=== PATIENT | female | born 1985 | race Caucasian/White ===

== ENCOUNTER 2017-03-19 02:34 | Emergency (ER) | payer MEDICAID ==
--- NOTE | 2017-03-19 02:48 | EDM.PDOC ---
ED HPI GENERAL MEDICAL PROBLEM - General Stated Complaint: MEDICAL CLEARANCE Time Seen by Provider: 03/19/17 02:44 - History of Present Illness INITIAL COMMENTS - FREE TEXT/NARRATIVE: HISTORY AND PHYSICAL: History of present illness: Patient 32-year-old female presents because of one portion of medical clearance patient denies any concern Review of systems: As per history of present illness and below otherwise all systems reviewed and negative. Past medical history: As per history of present illness and as reviewed below otherwise noncontributory. Surgical history: As per history of present illness and as reviewed below otherwise noncontributory. Social history: No reported history of drug or alcohol abuse. Family history: As per history of present illness and as reviewed below otherwise noncontributory. Physical exam: HEENT: Atraumatic, normocephalic, pupils reactive, negative for conjunctival pallor or scleral icterus, mucous membranes moist, throat clear, neck supple, nontender, trachea midline. Lungs: Clear to auscultation, breath sounds equal bilaterally, chest nontender. Heart: S1S2, regular, negative for clicks, rubs, or JVD. Abdomen: Soft, nondistended, nontender. Negative for masses or hepatosplenomegaly. Negative for costovertebral tenderness. Pelvis: Stable nontender. Genitourinary: Deferred. Rectal: Deferred. Extremities: Atraumatic, negative for cords or calf pain. Neurovascular unremarkable. Neuro: Awake, alert, oriented. Cranial nerves II through XII unremarkable. Cerebellum unremarkable. Motor and sensory unremarkable throughout. Exam nonfocal. Diagnostics: None Therapeutics: None Impression: #1 medically clear for incarceration Definitive disposition and diagnosis as appropriate pending reevaluation and review of above. - Related Data Allergies Allergy/AdvReac Type Severity Reaction Status Date / Time latex Allergy Hives Verified 07/03/16 22:05 nickel Allergy Rash Verified 07/03/16 22:05 Penicillins Allergy Cannot Verified 07/03/16 22:05 Remember Home Meds: Home Meds Methylphenidate HCl [Methylphenidate ER] 2 tab PO BID 05/06/16 [History] Temazepam 1 cap PO BEDTIME PRN 05/06/16 [History] Rivaroxaban [Xarelto] 15 mg PO BID #40 tablet 06/03/16 [Rx] oxyCODONE 10 mg PO Q6H PRN #14 tablet 06/03/16 [Rx] Omeprazole 40 mg PO DAILY 06/27/16 [History] Past Medical History HEENT History: Reports: Impaired Vision Other HEENT History: wears glasses/ contacts Cardiovascular History: Reports: Blood Clots/VTE/DVT, Hypertension Other Cardiovascular History: currently has a blood clot in right arm, disgnosed 05/31/16- off xarelto for one week Respiratory History: Reports: None Gastrointestinal History: Reports: GERD, Hepatitis Other Gastrointestinal History: Hepatitis C, recent hx of hematemesis Genitourinary History: Reports: Renal Calculus 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: Ectopic , Endometriosis, Musculoskeletal History: Reports: Back Pain, Chronic, Fracture, Neck Pain, Chronic Other Musculoskeletal History: hx of fx right clavicle, states has chronic joint pain Neurological History: Reports: None Other Neuro History: states has had a headache for 3 weeks Psychiatric History: Reports: ADD, Anxiety, Depression, PTSD Endocrine/Metabolic History: Reports: Obesity/BMI 30+ Hematologic History: Reports: Anticoagulation Therapy Other Hematologic History: currently has a blood clot in her right arm Immunologic History: Reports: None Oncologic (Cancer) History: Reports: None Dermatologic History: Reports: None - Infectious Disease History Infectious Disease History: Reports: None - Past Surgical History Female Surgical History: Reports: D&C, Lithotripsy/ESWL, Other (See Below) Social & Family History - Family History OBGYN: Reports: Musculoskeletal: Reports: Back pain, Chronic Endocrine/Metabolic: Reports: Diabetes, type II, Hypothyroidism Oncologic: Reports: Skin - Tobacco Use Smoking Status *Q: Current Every Day Smoker Years of Tobacco use: 4 Packs/Tins Daily: 0.5 Second Hand Smoke Exposure: No - Caffeine Use Caffeine Use: Reports: None - Alcohol Use Days Per Week of Alcohol Use: 0 - Recreational Drug Use Recreational Drug Use: No Drug Use in Last 12 Months: No ED ROS GENERAL - Review of Systems Review Of Systems: ROS reveals no pertinent complaints other than HPI. ED EXAM, GENERAL - Physical Exam Exam: See Below (See dictation) Departure - Departure Time of Disposition: 02:47 Disposition: Home, Self-Care 01 Condition: Good Clinical Impression: Medical clearance for incarceration, Encounter for medical screening examination - Discharge Information Additional Instructions: The following information is given to patients seen in the emergency department who are being discharged to home. This information is to outline your options for follow-up care. We provide all patients seen in our emergency department with a follow-up referral. The need for follow-up, as well as the timing and circumstances, are variable depending upon the specifics of your emergency department visit. If you don't have a primary care physician on staff, we will provide you with a referral. We always advise you to contact your personal physician following an emergency department visit to inform them of the circumstance of the visit and for follow-up with them and/or the need for any referrals to a consulting specialist. The emergency department will also refer you to a specialist when appropriate. This referral assures that you have the opportunity for followup care with a specialist. All of these measure are taken in an effort to provide you with optimal care, which includes your followup. Under all circumstances we always encourage you to contact your private physician who remains a resource for coordinating your care. When calling for followup care, please make the office aware that this follow-up is from your recent emergency room visit. If for any reason you are refused follow-up, please contact the [facility] emergency department at and asked to speak to the emergency department charge nurse. Jeffrey primary medical doctor 1-2 days return as needed as discussed
[2017-03-19] MEDS ORDERED: Proparacaine 0.5% Ophth Soln 15 ML Bottle ONE (02:57)
[2017-03-19] MEDS ORDERED: Proparacaine 0.5% Ophth Soln 15 ML Bottle EYELF SCH (03:00)
[2017-03-19] MEDS ORDERED: Erythromycin Base 0.5% Ophth Oint 1 GM Tube EYELF ONE (03:01)
[2017-03-19 07:56] VITALS: BP 133/95
== END 2017-03-19 03:30 ==
LOC: MW.ED 02:34
DX: H18.823 Corneal disorder due to contact lens, bilateral (principal); I10 Essential (primary) hypertension; K21.9 Gastro-esophageal reflux disease without esophagitis; E66.9 Obesity, unspecified; F41.9 Anxiety disorder, unspecified; F32.9 Major depressive disorder, single episode, unspecified; F17.210 Nicotine dependence, cigarettes, uncomplicated; Z91.040 Latex allergy status; Z88.0 Allergy status to penicillin; Z87.442 Personal history of urinary calculi
CPT/HCPCS: 99282; A9270

== ENCOUNTER 2017-10-18 11:16 | Emergency (ER) | payer MEDICAID ==
[2017-10-18 11:35] VITALS: BP 144/98
--- NOTE | 2017-10-18 11:47 | EDM.PDOC ---
ED HPI GENERAL MEDICAL PROBLEM - General Chief Complaint: ENT Problem Stated Complaint: SORE THROAT Time Seen by Provider: 10/18/17 12:26 - History of Present Illness INITIAL COMMENTS - FREE TEXT/NARRATIVE: HISTORY AND PHYSICAL: History of present illness: Patient 32-year-old white female presents concern of sore throat 3 days no fever chills nausea vomiting or other complaints Review of systems: As per history of present illness and below otherwise all systems reviewed and negative. Past medical history: As per history of present illness and as reviewed below otherwise noncontributory. Surgical history: As per history of present illness and as reviewed below otherwise noncontributory. Social history: No reported history of drug or alcohol abuse. Family history: As per history of present illness and as reviewed below otherwise noncontributory. Physical exam: HEENT: Atraumatic, normocephalic, pupils reactive, negative for conjunctival pallor or scleral icterus, mucous membranes moist, throat with 2+ tonsils pustular exudates noted no peritonsillar fullness no uvular deviation, neck supple, nontender, trachea midline. Lungs: Clear to auscultation, breath sounds equal bilaterally, chest nontender. Heart: S1S2, regular, negative for clicks, rubs, or JVD. Abdomen: Soft, nondistended, nontender. Negative for masses or hepatosplenomegaly. Negative for costovertebral tenderness. Pelvis: Stable nontender. Genitourinary: Deferred. Rectal: Deferred. Extremities: Atraumatic, negative for cords or calf pain. Neurovascular unremarkable. Neuro: Awake, alert, oriented. Cranial nerves II through XII unremarkable. Cerebellum unremarkable. Motor and sensory unremarkable throughout. Exam nonfocal. Diagnostics: Rapid strep Monospot Therapeutics: None Impression: #1 exudative pharyngitis Definitive disposition and diagnosis as appropriate pending reevaluation and review of above. Throat Pain Score (Numeric/FACES): 10 - Related Data Allergies Allergy/AdvReac Type Severity Reaction Status Date / Time latex Allergy Hives Verified 10/18/17 11:35 nickel Allergy Rash Verified 10/18/17 11:35 Penicillins Allergy Cannot Verified 10/18/17 11:35 Remember Home Meds: Home Meds Methylphenidate HCl [Methylphenidate ER] 2 tab PO BID 05/06/16 [History] Temazepam 1 cap PO BEDTIME PRN 05/06/16 [History] Rivaroxaban [Xarelto] 15 mg PO BID #40 tablet 06/03/16 [Rx] Past Medical History HEENT History: Reports: Impaired Vision Other HEENT History: wears glasses/ contacts Cardiovascular History: Reports: Blood Clots/VTE/DVT, Hypertension Other Cardiovascular History: currently has a blood clot in right arm, disgnosed 05/31/16- off xarelto for one week Respiratory History: Reports: None Gastrointestinal History: Reports: GERD, Hepatitis Other Gastrointestinal History: Hepatitis C, recent hx of hematemesis Genitourinary History: Reports: Renal Calculus 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: 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 , Endometriosis, Musculoskeletal History: Reports: Back Pain, Chronic, Fracture, Neck Pain, Chronic Other Musculoskeletal History: hx of fx right clavicle, states has chronic joint pain Neurological History: Reports: None Other Neuro History: states has had a headache for 3 weeks Psychiatric History: Reports: ADD, Anxiety, Depression, PTSD Endocrine/Metabolic History: Reports: Obesity/BMI 30+ Hematologic History: Reports: Anticoagulation Therapy Other Hematologic History: currently has a blood clot in her right arm Immunologic History: Reports: None Oncologic (Cancer) History: Reports: None Dermatologic History: Reports: None - Infectious Disease History Infectious Disease History: Reports: Chicken Pox, Hepatitis C - Past Surgical History Head Surgeries/Procedures: Reports: None Female Surgical History: Reports: D&C, Lithotripsy/ESWL, Other (See Below) Social & Family History - Family History Family Medical History: Noncontributory OBGYN: Reports: Musculoskeletal: Reports: Back pain, Chronic Endocrine/Metabolic: Reports: Diabetes, type II, Hypothyroidism Oncologic: Reports: Skin - Tobacco Use Smoking Status *Q: Never Smoker Years of Tobacco use: 1 Packs/Tins Daily: 1 Second Hand Smoke Exposure: No - Caffeine Use Caffeine Use: Reports: None - Alcohol Use Days Per Week of Alcohol Use: 0 - Recreational Drug Use Recreational Drug Use: No Drug Use in Last 12 Months: No ED ROS GENERAL - Review of Systems Review Of Systems: ROS reveals no pertinent complaints other than HPI. ED EXAM, GENERAL - Physical Exam Exam: See Below (See dictation) Course - Vital Signs Last Recorded V/S: Last Vital Signs Temp 36.7 C 10/18/17 11:32 Pulse 108 H 10/18/17 11:32 Resp 18 03/21/18 11:32 BP 144/98 H 10/18/17 11:32 Pulse Ox 95 10/18/17 11:32 - Orders/Labs/Meds Labs: Laboratory Tests 10/18/17 Range/Units 12:03 Monoscreen NEGATIVE (NEG) Departure - Departure Time of Disposition: 12:26 Disposition: Home, Self-Care 01 Condition: Good Clinical Impression: Streptococcal pharyngitis - Discharge Information Referrals: PCP,Unknown [Primary Care Provider] - Forms: ED Department Discharge Additional Instructions: The following information is given to patients seen in the emergency department who are being discharged to home. This information is to outline your options for follow-up care. We provide all patients seen in our emergency department with a follow-up referral. The need for follow-up, as well as the timing and circumstances, are variable depending upon the specifics of your emergency department visit. If you don't have a primary care physician on staff, we will provide you with a referral. We always advise you to contact your personal physician following an emergency department visit to inform them of the circumstance of the visit and for follow-up with them and/or the need for any referrals to a consulting specialist. The emergency department will also refer you to a specialist when appropriate. This referral assures that you have the opportunity for followup care with a specialist. All of these measure are taken in an effort to provide you with optimal care, which includes your followup. Under all circumstances we always encourage you to contact your private physician who remains a resource for coordinating your care. When calling for followup care, please make the office aware that this follow-up is from your recent emergency room visit. If for any reason you are refused follow-up, please contact the [facility] emergency department at and asked to speak to the emergency department charge nurse. Clindamycin Tylenol 3 as prescribed push fluids clear liquids as directed saltwater gargles as discussed follow-up primary medical doctor call to schedule routine appointment and return as needed as discussed
[2017-10-18] MEDS ORDERED: Acetaminophen/Codeine 120-12 MG/5 ML Soln 5 ML UD Cup PO ONE (12:32)
== END 2017-10-18 12:48 | disposition home or self-care (01) ==
LOC: MW.ED 11:16
DX: J02.0 Streptococcal pharyngitis (principal); I10 Essential (primary) hypertension; Z91.040 Latex allergy status; Z88.0 Allergy status to penicillin; Z91.09 Other allergy status, other than to drugs and biological substances; Z79.899 Other long term (current) drug therapy
CPT/HCPCS: 36415; 86308; 87880; 99283; A9270; 99282

== ENCOUNTER 2018-12-16 22:18 | Emergency (ER) | payer MEDICAID ==
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
[2018-12-17] MEDS ORDERED: Ondansetron 4 MG Tab.DIS PO PRN (00:01)
[2018-12-17 00:03] VITALS: BP 137/88
--- NOTE | 2018-12-17 00:09 | US ---
INDICATION: Pain to right forearm, history of clot TECHNIQUE: Ultrasound venous duplex right upper extremity. Zamarripa-scale, color Doppler, and spectral Doppler imaging were performed with compression and augmentation. COMPARISON: None FINDINGS: Deep veins: Nonocclusive thrombus is seen within the radial vein from the antecubital fossa into the forearm. The visualized right internal jugular, subclavian, brachial, axillary and ulnar veins are fully compressible, demonstrate normal color flow, and normal response to mechanical augmentation. The Duplex Doppler waveforms of the patent vessels are normal in appearance. Superficial veins: The visualized cephalic and basilic veins are unremarkable. Soft tissue: No masses or cysts are identified. No adenopathy is seen. IMPRESSION: 1. Nonocclusive thrombus is seen within the radial vein from the antecubital fossa into the forearm. The findings were discussed with Dr. Munoz at 12:08 AM. Dictated by Phil Wade MD @ 12/17/2018 12:07:03 AM Dictated by: Phil Wade MD @ 12/17/2018 00:08:54 (Electronically Signed)
[2018-12-17] MEDS ORDERED: traMADol 50 MG Tab PO ONE (00:36)
[2018-12-17] MEDS ORDERED: Rivaroxaban 15 MG Tab PO STA (00:47)
[2018-12-17 00:52] LABS: CHLORIDE,CL 105 mmol/L (98-107); SODIUM,NA 143 mmol/L (136-145)
== END 2018-12-17 00:58 | disposition home or self-care (01) ==
LOC: MW.ED 22:18
DX: I82.621 Acute embolism and thrombosis of deep veins of right upper extremity (principal); F10.129 Alcohol abuse with intoxication, unspecified; E66.9 Obesity, unspecified; Z88.0 Allergy status to penicillin; Z91.041 Radiographic dye allergy status; Z88.8 Allergy status to other drugs, medicaments and biological substances; Z91.09 Other allergy status, other than to drugs and biological substances; Z98.890 Other specified postprocedural states
CPT/HCPCS: 36415; 80053; 81003; 81025; 85025; 85610; 93971; 99284; A9270

== ENCOUNTER 2019-05-16 10:17 | Emergency (ER) | payer MEDICAID ==
[2019-05-16] MEDS ORDERED: Ketorolac 30 MG/ML SDV IM ONE (10:41)
[2019-05-16] MEDS ORDERED: Ketorolac 60 MG/2 ML SDV IM ONE (10:45)
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
[2019-05-16] MEDS ORDERED: LORazepam 1 MG Tab PO ONE (11:23)
[2019-05-16 11:50] LABS: BLOOD UREA NITROGEN,BUN 17 mg/dL (7.0-18.0); CARBON DIOXIDE,CO2 23.1 mmol/L (21.0-32.0); CHLORIDE,CL 105 mmol/L (98-107); GLUCOSE RANDOM 107 mg/dL (74-106); POTASSIUM,K 4.1 mmol/L (3.5-5.1); SODIUM,NA 139 mmol/L (136-145)
[2019-05-16] MEDS ORDERED: Iopamidol 755 MG/ML 500 ML Multipack Bottle IVPUSH ONE (14:01)
--- NOTE | 2019-05-16 14:26 | CT ---
CT abdomen and pelvis Technique: Multiple axial sections were obtained from above the dome of the diaphragm inferiorly through the pubic symphysis. Intravenous contrast was utilized. No oral contrast has been given. Comparison: No prior abdominal imaging. Findings: Visualized portion of the lung bases show nothing acute. Liver contains no focal abnormality. Spleen also appears within normal limits. Adrenal glands show no nodule. Pancreas appears within normal limits. Gallbladder contains no calcified gallstones. Aorta shows no aneurysm. No retroperitoneal adenopathy or mesenteric abnormalities are seen. No pelvic mass or adenopathy is seen. No free fluid or inflammatory change is seen. Appendix is seen which is normal in size. Bone window settings shows a unilateral spondylitic defect on the right side at L5-S1. Bony structures otherwise are within normal limits for the patient's age. Small fat-containing umbilical hernia is noted. Impression: Findings which are felt to be incidental as noted above. Nothing acute is appreciated on CT study of the abdomen and pelvis. Diagnostic code #2 MTDD
[2019-05-16 15:17] VITALS: BP 128/81; PULSE 70
== END 2019-05-16 15:17 | disposition home or self-care (01) ==
LOC: MW.ED 10:17
DX: M25.50 Pain in unspecified joint (principal); M79.10 Myalgia, unspecified site; R21 Rash and other nonspecific skin eruption; R94.5 Abnormal results of liver function studies; F17.210 Nicotine dependence, cigarettes, uncomplicated; F90.9 Attention-deficit hyperactivity disorder, unspecified type; E66.9 Obesity, unspecified; Z68.38 Body mass index [BMI] 38.0-38.9, adult; Z91.040 Latex allergy status; Z91.048 Other nonmedicinal substance allergy status; Z88.0 Allergy status to penicillin; Z86.718 Personal history of other venous thrombosis and embolism; Z79.899 Other long term (current) drug therapy
CPT/HCPCS: 36415; 74177; 80053; 81001; 81025; 82550; 85025; 85652; 86038; 86140; 86430; 86431; 87476; 96372; 99283; A9270; J1885; Q9967

== ENCOUNTER 2019-08-04 17:20 | Emergency (ER) | payer MEDICAID | END 2019-08-05 18:00 | LOC: MW.ED 17:20 | DX: Z53.21 Procedure and treatment not carried out due to patient leaving prior to being seen by health care provider (principal) ==

== ENCOUNTER 2019-08-05 15:50 | Inpatient (IN) | payer MEDICAID, OTHER ==
[2019-08-05] MEDS ORDERED: Sodium Chloride 0.9% 1,000 ML IV SCH ×2 (16:00→22:30)
[2019-08-05] MEDS ORDERED: Sodium Chloride 0.9% 2.5 ML Syringe FLUSH PRN (16:00)
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
[2019-08-05] MEDS: oxyCODONE 5 MG Tab PO PRN ×2 (16:33→21:52)
[2019-08-05] MEDS: Sodium Chloride 0.9% 1,000 ML IV SCH (16:34)
[2019-08-05] MEDS: Morphine 2 MG/ML SYRINGE IVPUSH PRN ×4 (16:45→23:46)
[2019-08-05] MEDS: Levofloxacin/Dextrose 5%-Water 750 MG in Premix Bag 1 BAG IV SCH (17:17)
--- NOTE | 2019-08-05 17:35 | CT ---
CT abdomen and pelvis Technique: Multiple axial sections were obtained from above the dome of the diaphragm inferiorly through the pubic symphysis. Intravenous and oral contrast not utilized. Comparison: Prior CT abdomen and pelvis exam of 05/16/19. Findings: Visualized lung bases show nothing acute. Noncontrast appearance of the liver shows no focal parenchymal abnormality. Spleen appears within normal limits. Adrenal glands show no nodule. Pancreas is within normal limits. Gallbladder contains no calcified gallstones. Very slight inflammatory change is noted off the lower pole of the right kidney anteriorly. This is not seen on the prior study and could represent change from pyelonephritis. No abnormal calcifications or other abnormality is seen within the kidneys. No ureteral dilatation or ureteral stone is seen. Aorta shows no aneurysm. No retroperitoneal adenopathy or mesenteric abnormalities are seen. Appendix is seen and is normal. No pelvic mass or adenopathy is noted. No free fluid or inflammatory change is otherwise seen within the abdomen or pelvis. Bone window settings were reviewed which appear within normal limits for the patient's age. Nondisplaced unilateral spondylitic defect is seen on the right side at L5-S1. Small fat-containing umbilical hernia is noted. Impression: 1. Mild inflammatory change around the lower pole of the right kidney anteriorly. This is an interval change from previous exam and could represent change from pyelonephritis. 2. Other findings believed to be incidental as noted above. No other acute finding is seen on noncontrast CT study of the abdomen and pelvis. Diagnostic code #3 This report was dictated in [place] Standard Time
[2019-08-05] MEDS ORDERED: Ketorolac 30 MG/ML SDV IVPUSH ONE ×2 (17:52→22:12)
[2019-08-05 18:22] LABS: BLOOD UREA NITROGEN,BUN 11 mg/dL (7.0-18.0); CARBON DIOXIDE,CO2 21.4 mmol/L (21.0-32.0); CHLORIDE,CL 99 mmol/L (98-107); GLUCOSE RANDOM 126 mg/dL (74-106); POTASSIUM,K 4.6 mmol/L (3.5-5.1); SODIUM,NA 132 mmol/L (136-145)
[2019-08-05] MEDS: Ondansetron 4 MG/2 ML SDV IVPUSH PRN (18:59)
[2019-08-05] MEDS ORDERED: Albuterol 6.7 GM Inhaler INH PRN (19:28)
[2019-08-05] MEDS ORDERED: ZOLPIDEM 10 MG PO PRN (21:00)
[2019-08-05] MEDS: Enoxaparin 40 MG/0.4 ML Syringe SUBCUT SCH (21:46)
[2019-08-06] MEDS: Morphine 2 MG/ML SYRINGE IVPUSH PRN ×2 (02:56→04:55)
[2019-08-06] MEDS: Sodium Chloride 0.9% 1,000 ML IV SCH ×3 (03:50→18:58)
[2019-08-06] MEDS: Acetaminophen 325 MG Tab PO PRN ×3 (03:58→22:05)
[2019-08-06] MEDS: Ketorolac 30 MG/ML SDV IVPUSH PRN ×3 (04:00→18:14)
[2019-08-06] MEDS ORDERED: HYDROmorphone 1 MG/ML Syringe IVPUSH PRN (05:19)
[2019-08-06 06:24] LABS: CARBON DIOXIDE,CO2 23.5 mmol/L (21.0-32.0); POTASSIUM,K 4.5 mmol/L (3.5-5.1)
--- NOTE | 2019-08-06 09:30 | PCM.PN ---
- General Info Date of Service: 08/06/19 Admission Dx/Problem (Free Text): Admission Diagnosis/Problem Admission Diagnosis/Problem Pyelonephritis Subjective Update: Pain contrinues, but is controlled with dilaudid this morning. No chest pain or abdominal pain. R flank pain mainly. No SOB. No diarrhea. Functional Status: Reports: Pain Controlled - Review of Systems General: Reports: Fatigue, Malaise Pulmonary: Reports: No Symptoms. Denies: Shortness of Breath Cardiovascular: Reports: No Symptoms. Denies: Chest Pain Gastrointestinal: Reports: Decreased Appetite Genitourinary: Reports: Flank Pain (right sided) Musculoskeletal: Reports: No Symptoms Skin: Reports: No Symptoms Neurological: Reports: No Symptoms Psychiatric: Reports: No Symptoms - Patient Data Vitals - Most Recent: Last Vital Signs Temp 97.7 F 08/06/19 05:00 Pulse 98 08/06/19 05:00 Resp 24 H 08/06/19 05:00 BP 111/63 08/06/19 05:00 Pulse Ox 99 08/06/19 05:00 Weight - Most Recent: 122.152 kg I&O - Last 24 Hours: Intake & Output 08/05/19 08/06/19 08/06/19 22:59 06:59 14:59 Intake Total 1240 3042 Output Total 300 Balance 1240 2742 Lab Results Last 24 Hours: Laboratory Results - last 24 hr 08/05/19 08/05/19 08/05/19 Range/Units 16:30 16:30 17:00 WBC 17.32 H (4.0-11.0) K/uL RBC 4.85 (4.30-5.90) M/uL Hgb 14.9 (12.0-16.0) g/dL Hct 42.4 (36.0-46.0) % MCV 87.4 (80.0-98.0) fL MCH 30.7 (27.0-32.0) pg MCHC 35.1 (31.0-37.0) g/dL RDW Std Deviation 42.6 (28.0-62.0) fl RDW Coeff of [place] 13 (11.0-15.0) % Plt Count 287 (150-400) K/uL MPV 12.30 H (7.40-12.00) fL Neut % (Auto) 81.4 H (48.0-80.0) % Lymph % (Auto) 7.3 L (16.0-40.0) % [place] % (Auto) 11.0 (0.0-15.0) % Eos % (Auto) 0.2 (0.0-7.0) % Baso % (Auto) 0.1 (0.0-1.5) % Neut # (Auto) 14.1 H (1.4-5.7) K/uL Lymph # (Auto) 1.3 (0.6-2.4) K/uL [place] # (Auto) 1.9 H (0.0-0.8) K/uL Eos # (Auto) 0.0 (0.0-0.7) K/uL Baso # (Auto) 0.0 (0.0-0.1) K/uL Nucleated RBC % 0.0 /100WBC Nucleated RBCs # 0 K/uL Lactate 1.5 (0.20-2.00) mmol/L Sodium (136-145) mmol/L Potassium (3.5-5.1) mmol/L Chloride (98-107) mmol/L Carbon Dioxide (21.0-32.0) mmol/L BUN (7.0-18.0) mg/dL Creatinine (0.6-1.0) mg/dL Est Cr Clr Drug Dosing mL/min Estimated GFR (MDRD) ml/min Glucose (74-106) mg/dL Calcium (8.5-10.1) mg/dL HCG, Qual (NEG) Urine Color YELLOW Urine Appearance SLT CLOUDY Urine pH 6.0 (5.0-8.0) Ur Specific [place] 1.015 (1.001-1.035) Urine Protein 30 H (NEGATIVE) mg/dL Urine Glucose (UA) NEGATIVE (NEGATIVE) mg/dL Urine Ketones NEGATIVE (NEGATIVE) mg/dL Urine Occult Blood MODERATE H (NEGATIVE) Urine Nitrite POSITIVE H (NEGATIVE) Urine Bilirubin SMALL H (NEGATIVE) Urine Ictotest NEGATIVE Urine Urobilinogen 2.0 H (<2.0) EU/dL Ur Leukocyte Esterase SMALL H (NEGATIVE) Urine RBC 0-4 (0-2/HPF) Urine WBC 40-50 (0-5/HPF) Ur Epithelial Cells FEW (NONE-FEW) Urine Bacteria 3+ H (NEGATIVE) 08/05/19 08/05/19 08/06/19 Range/Units 17:54 17:54 05:57 WBC 11.29 H (4.0-11.0) K/uL RBC 3.98 L (4.30-5.90) M/uL Hgb 12.0 (12.0-16.0) g/dL Hct 36.8 (36.0-46.0) % MCV 92.5 (80.0-98.0) fL MCH 30.2 (27.0-32.0) pg MCHC 32.6 (31.0-37.0) g/dL RDW Std Deviation 45.6 (28.0-62.0) fl RDW Coeff of [place] 14 (11.0-15.0) % Plt Count 197 (150-400) K/uL MPV 10.80 (7.40-12.00) fL Neut % (Auto) 65.2 (48.0-80.0) % Lymph % (Auto) 17.0 (16.0-40.0) % [place] % (Auto) 16.7 H (0.0-15.0) % Eos % (Auto) 0.9 (0.0-7.0) % Baso % (Auto) 0.2 (0.0-1.5) % Neut # (Auto) 7.4 H (1.4-5.7) K/uL Lymph # (Auto) 1.9 (0.6-2.4) K/uL [place] # (Auto) 1.9 H (0.0-0.8) K/uL Eos # (Auto) 0.1 (0.0-0.7) K/uL Baso # (Auto) 0.0 (0.0-0.1) K/uL Nucleated RBC % 0.0 /100WBC Nucleated RBCs # 0 K/uL Lactate (0.20-2.00) mmol/L Sodium 132 L (136-145) mmol/L Potassium 4.6 (3.5-5.1) mmol/L Chloride 99 (98-107) mmol/L Carbon Dioxide 21.4 (21.0-32.0) mmol/L BUN 11 (7.0-18.0) mg/dL Creatinine 0.8 (0.6-1.0) mg/dL Est Cr Clr Drug Dosing 102.58 mL/min Estimated GFR (MDRD) > 60.0 ml/min Glucose 126 H (74-106) mg/dL Calcium 8.3 L (8.5-10.1) mg/dL HCG, Qual NEGATIVE (NEG) Urine Color Urine Appearance Urine pH (5.0-8.0) Ur Specific [place] (1.001-1.035) Urine Protein (NEGATIVE) mg/dL Urine Glucose (UA) (NEGATIVE) mg/dL Urine Ketones (NEGATIVE) mg/dL Urine Occult Blood (NEGATIVE) Urine Nitrite (NEGATIVE) Urine Bilirubin (NEGATIVE) Urine Ictotest Urine Urobilinogen (<2.0) EU/dL Ur Leukocyte Esterase (NEGATIVE) Urine RBC (0-2/HPF) Urine WBC (0-5/HPF) Ur Epithelial Cells (NONE-FEW) Urine Bacteria (NEGATIVE) 08/06/19 Range/Units 05:57 WBC (4.0-11.0) K/uL RBC (4.30-5.90) M/uL Hgb (12.0-16.0) g/dL Hct (36.0-46.0) % MCV (80.0-98.0) fL MCH (27.0-32.0) pg MCHC (31.0-37.0) g/dL RDW Std Deviation (28.0-62.0) fl RDW Coeff of [place] (11.0-15.0) % Plt Count (150-400) K/uL MPV (7.40-12.00) fL Neut % (Auto) (48.0-80.0) % Lymph % (Auto) (16.0-40.0) % [place] % (Auto) (0.0-15.0) % Eos % (Auto) (0.0-7.0) % Baso % (Auto) (0.0-1.5) % Neut # (Auto) (1.4-5.7) K/uL Lymph # (Auto) (0.6-2.4) K/uL [place] # (Auto) (0.0-0.8) K/uL Eos # (Auto) (0.0-0.7) K/uL Baso # (Auto) (0.0-0.1) K/uL Nucleated RBC % /100WBC Nucleated RBCs # K/uL Lactate (0.20-2.00) mmol/L Sodium 137 (136-145) mmol/L Potassium 4.5 (3.5-5.1) mmol/L Chloride 103 (98-107) mmol/L Carbon Dioxide 23.5 (21.0-32.0) mmol/L BUN 14 (7.0-18.0) mg/dL Creatinine 1.1 H (0.6-1.0) mg/dL Est Cr Clr Drug Dosing 74.60 mL/min Estimated GFR (MDRD) 56.5 ml/min Glucose 123 H (74-106) mg/dL Calcium 7.8 L (8.5-10.1) mg/dL HCG, Qual (NEG) Urine Color Urine Appearance Urine pH (5.0-8.0) Ur Specific [place] (1.001-1.035) Urine Protein (NEGATIVE) mg/dL Urine Glucose (UA) (NEGATIVE) mg/dL Urine Ketones (NEGATIVE) mg/dL Urine Occult Blood (NEGATIVE) Urine Nitrite (NEGATIVE) Urine Bilirubin (NEGATIVE) Urine Ictotest Urine Urobilinogen (<2.0) EU/dL Ur Leukocyte Esterase (NEGATIVE) Urine RBC (0-2/HPF) Urine WBC (0-5/HPF) Ur Epithelial Cells (NONE-FEW) Urine Bacteria (NEGATIVE) [place] Results Last 24 Hours: Microbiology 08/05/19 17:16 Anaerobic Blood Culture - Final Blood - Venous - Lab Draw Med Orders - Current: Current Medications Acetaminophen (Tylenol) 650 mg PO Q4H PRN PRN Reason: Pain (mild 1-3) Last Admin: 08/06/19 03:58 Dose: 650 mg Albuterol (Proventil Hfa) 0 gm INH Q4HR PRN PRN Reason: Shortness of Breath Enoxaparin Sodium (Lovenox) 40 mg SUBCUT Q24H JUANA Last Admin: 08/05/19 21:46 Dose: 40 mg Hydromorphone HCl (Dilaudid) 1 mg IVPUSH Q3H PRN PRN Reason: Pain Sodium Chloride (Normal Saline) 1,000 mls @ 125 mls/hr IV Q8H JUANA Last Admin: 08/06/19 03:50 Dose: 125 mls/hr Levofloxacin/Dextrose 750 mg/ (Premix) 150 mls @ 100 mls/hr IV Q24H JUANA Last Admin: 08/05/19 17:17 Dose: 100 mls/hr Sodium Chloride (Normal Saline) 1,000 mls @ 999 mls/hr IV ASDIRECTED JUANA Last Admin: 08/06/19 00:49 Dose: 999 mls/hr Ketorolac Tromethamine (Toradol) 30 mg IVPUSH Q6H PRN PRN Reason: Pain (moderate 4-6) Stop: 08/10/19 04:01 Last Admin: 08/06/19 04:00 Dose: 30 mg Zolpidem 10 Mg Tab # (Patient's Own Med#) 1 each PO BEDTIME PRN PRN Reason: INSOMNIA Ondansetron HCl (Zofran) 4 mg IVPUSH Q4H PRN PRN Reason: Nausea Last Admin: 08/05/19 18:59 Dose: 4 mg [Methylphenidate Er] (20 Mg) 1 each PO BID [facility] Sodium Chloride (Saline Flush) 2.5 ml FLUSH ASDIRECTED PRN PRN Reason: Keep Vein Open Discontinued Medications Hydromorphone HCl (Dilaudid) 1 mg IVPUSH Q4H PRN PRN Reason: Pain Last Admin: 08/06/19 05:39 Dose: 1 mg Sodium Chloride (Normal Saline) 1,000 mls @ 999 mls/hr IV BOLUS [facility] Stop: 08/05/19 17:01 Ketorolac Tromethamine (Toradol) 30 mg IVPUSH ONETIME ONE Stop: 08/05/19 17:53 Last Admin: 08/05/19 18:11 Dose: 30 mg Ketorolac Tromethamine (Toradol) 30 mg IVPUSH ONETIME ONE Stop: 08/05/19 22:13 Last Admin: 08/05/19 22:38 Dose: 30 mg Morphine Sulfate (Morphine) 2 mg IVPUSH Q2H PRN PRN Reason: Pain (severe 7-10) Stop: 08/06/19 16:02 Last Admin: 08/06/19 04:55 Dose: 2 mg Oxycodone HCl (Oxycodone) 5 mg PO Q4H PRN PRN Reason: Pain (moderate 4-6) Stop: 08/05/19 23:59 Last Admin: 08/05/19 21:52 Dose: 5 mg Zaleplon (Sonata) 10 mg PO BEDTIME PRN PRN Reason: Insomnia - Exam General: Alert, Oriented, Cooperative, No Acute Distress Lungs: Clear to Auscultation, Normal Respiratory Effort Cardiovascular: Regular Rate, Regular Rhythm GI/Abdominal Exam: Normal Bowel Sounds, Soft, Non-Tender Back Exam: CVA Tenderness (R) Extremities: Normal Inspection, Normal Range of Motion, Non-Tender Neurological: No New Focal Deficit Psy/Mental Status: Alert, Normal Affect, Normal Mood Sepsis Event Note - Evaluation Sepsis Screening Result: Sepsis Risk - Focused Exam Vital Signs: Vital Signs Temp Pulse Resp BP Pulse Ox 08/06/19 05:00 97.7 F 98 24 H 111/63 99 08/06/19 00:31 98.4 F 95 20 109/58 L 95 Date Exam was Performed: 08/06/19 Time Exam was Performed: 14:04 - Problem List & Annotations (1) Sepsis SNOMED Code(s): 07099140 Code(s): A41.9 - SEPSIS, UNSPECIFIED ORGANISM Status: Acute Current Visit : Yes (2) Pyelonephritis SNOMED Code(s): 94323823 Code(s): N12 - TUBULO-INTERSTITIAL NEPHRITIS, NOT SPCF ACUTE OR CHRONIC Status: Acute Current Visit: Yes (3) Hx of traumatic brain injury SNOMED Code(s): 81402483675209, 99137861990203 Code(s): Z87.820 - PERSONAL HISTORY OF TRAUMATIC BRAIN INJURY Status: Chronic Current Visit: Yes (4) Hx of deep venous thrombosis SNOMED Code(s): 841659654 Code(s): Z86.718 - PERSONAL HISTORY OF OTHER VENOUS THROMBOSIS AND EMBOLISM Status: Chronic Current Visit: Yes (5) Hx of hepatitis C SNOMED Code(s): 39467766420581, 21464713257663 Code(s): Z86.19 - PERSONAL HISTORY OF OTHER INFECTIOUS AND PARASITIC DISEASES Status: Chronic Current Visit: Yes - Problem List Review Problem List Initiated/Reviewed/Updated: Yes - My Orders Last 24 Hours: My Active Orders 08/05/19 15:59 Blood Culture x2 Reflex Set [OM.PC] Stat 08/05/19 16:00 Patient Status [ADT] Routine Oxygen Therapy [RC] PRN Up With Assistance [RC] ASDIRECTED VTE/DVT Education [RC] PER UNIT ROUTINE Vital Signs [RC] Q4H Acetaminophen [Tylenol] 650 mg PO Q4H PRN Ondansetron [Zofran] 4 mg IVPUSH Q4H PRN Sodium Chloride 0.9% [Saline Flush] 2.5 ml FLUSH ASDIRECTED PRN Saline Lock Insert [OM.PC] Routine Resuscitation Status Routine 08/05/19 16:01 Intake and Output [RC] Q12H 08/05/19 16:30 CULTURE BLOOD [BC] Stat Levofloxacin/Dextrose 5%-Water [Levaquin in D5W 750 MG/150 ML] 750 mg Premix Bag 1 bag IV Q24H 08/05/19 17:00 CULTURE URINE [RM] Stat Sodium Chloride 0.9% [Normal Saline] 1,000 ml IV Q8H 08/05/19 17:16 CULTURE BLOOD [BC] Stat 08/05/19 19:28 Albuterol [Proventil HFA] 0 gm INH Q4HR PRN 08/05/19 20:00 Enoxaparin [Lovenox] 40 mg SUBCUT Q24H 08/05/19 Lunch Regular Diet [DIET] 08/06/19 08:56 Admitting Counselor Discontinue [Cardiac Monitoring Discontinue] [RC] Click to Edit 08/06/19 08:57 HYDROmorphone [Dilaudid] 1 mg IVPUSH Q3H PRN 08/06/19 09:00 Patient's Own Medication [Ptom] 1 each PO BID 08/07/19 05:11 BMP [BASIC METABOLIC PANEL,BMP] [CHEM] AM CBC WITH AUTO DIFF [HEME] AM 08/08/19 05:11 BMP [BASIC METABOLIC PANEL,BMP] [CHEM] AM CBC WITH AUTO DIFF [HEME] AM - Plan Plan:: This 34 year old female admitted with sepsis secondary to pyelonephritis 1. Pyelonephritis: Sepsis resolved. BC and UC pending. Leukocytosis improving on Levaquin. No renal calculus noted on CT. Pain improved with Dilaudid, continue Toradol as well. Continue IVFs for now, NS 125. BP soft, but likely secondary to Dilaudid dosing. VTE prophylaxis: Lovenox Dispo: 2-3 days pending improvement.
[2019-08-06] MEDS: HYDROmorphone 1 MG/ML Syringe IVPUSH PRN ×5 (09:45→22:03)
[2019-08-06] MEDS: METHYLPHENIDATE 20 MG PO SCH ×2 (09:47→22:11)
[2019-08-06] MEDS: Levofloxacin/Dextrose 5%-Water 750 MG in Premix Bag 1 BAG IV SCH (15:52)
[2019-08-06] MEDS: Enoxaparin 40 MG/0.4 ML Syringe SUBCUT SCH (21:06)
[2019-08-07] MEDS: HYDROmorphone 1 MG/ML Syringe IVPUSH PRN ×4 (01:25→12:33)
[2019-08-07] MEDS: Ketorolac 30 MG/ML SDV IVPUSH PRN (02:16)
[2019-08-07] MEDS: Sodium Chloride 0.9% 1,000 ML IV SCH ×2 (02:18→10:15)
[2019-08-07 07:44] LABS: BLOOD UREA NITROGEN,BUN 12 mg/dL (7.0-18.0); CARBON DIOXIDE,CO2 21.8 mmol/L (21.0-32.0); CHLORIDE,CL 107 mmol/L (98-107); GLUCOSE RANDOM 131 mg/dL (74-106); POTASSIUM,K 3.8 mmol/L (3.5-5.1); SODIUM,NA 138 mmol/L (136-145)
[2019-08-07] MEDS ORDERED: oxyCODONE 5 MG Tab PO PRN (09:15)
[2019-08-07] MEDS: METHYLPHENIDATE 20 MG PO SCH ×2 (10:06→21:03)
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
[2019-08-07] MEDS ORDERED: HYDROmorphone 1 MG/ML Syringe IVPUSH PRN (13:58)
[2019-08-07] MEDS: Levofloxacin/Dextrose 5%-Water 750 MG in Premix Bag 1 BAG IV SCH (16:49)
[2019-08-07] MEDS: traMADol 50 MG Tab PO PRN (17:08)
[2019-08-07] MEDS: Ibuprofen 400 MG Tab PO SCH (18:24)
[2019-08-07] MEDS: Enoxaparin 40 MG/0.4 ML Syringe SUBCUT SCH (21:41)
[2019-08-08] MEDS: Ibuprofen 400 MG Tab PO SCH ×2 (05:44→10:31)
[2019-08-08] MEDS: traMADol 50 MG Tab PO PRN (05:45)
[2019-08-08 06:11] VITALS: BP 126/86; PULSE 81
[2019-08-08] MEDS: METHYLPHENIDATE 20 MG PO SCH (09:36)
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
[2019-08-08] MEDS: Ondansetron 4 MG/2 ML SDV IVPUSH PRN (09:44)
== END 2019-08-08 10:40 | disposition home or self-care (01) | DRG 872 ==
LOC: MW.MS 15:50
PROVIDERS: ADMIT Student in an Organized Health Care Education/Training Program; ATTEND Student in an Organized Health Care Education/Training Program
DX: A41.51 Sepsis due to Escherichia coli [E. coli] (principal); N12 Tubulo-interstitial nephritis, not specified as acute or chronic; E66.9 Obesity, unspecified; F41.9 Anxiety disorder, unspecified; F32.9 Major depressive disorder, single episode, unspecified; Z87.820 Personal history of traumatic brain injury; Z86.718 Personal history of other venous thrombosis and embolism; Z86.19 Personal history of other infectious and parasitic diseases; Z91.040 Latex allergy status; Z88.0 Allergy status to penicillin; Z91.09 Other allergy status, other than to drugs and biological substances; Z79.01 Long term (current) use of anticoagulants; Z79.899 Other long term (current) drug therapy; Z68.39 Body mass index [BMI] 39.0-39.9, adult
CPT/HCPCS: 36415; 74176; 74176-26; 80048; 81001; 83605; 84703; 85025; 87040; 87086; 87088; 87186; A9270-GY; J1170; J1650; J1885; J1956; J2270; J2405; J7030

== ENCOUNTER 2019-10-16 23:37 | Observation (INO) | payer MEDICAID ==
[2019-10-16] MEDS ORDERED: Sodium Chloride 0.9% 10 ML Syringe FLUSH PRN ×2 (23:50)
[2019-10-16] MEDS ORDERED: Sodium Chloride 0.9% 2.5 ML Syringe FLUSH PRN (23:50)
[2019-10-16] MEDS ORDERED: Morphine 4 MG/ML Syringe IVPUSH ONE (23:57)
[2019-10-16] MEDS ORDERED: Ondansetron 4 MG/2 ML SDV ONE (23:58)
[2019-10-16] MEDS ORDERED: Morphine 4 MG/ML Syringe ONE (23:58)
[2019-10-16] MEDS ORDERED: Ondansetron 4 MG/2 ML SDV IVPUSH ONE (23:58)
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
[2019-10-17] MEDS ORDERED: Morphine 2 MG/ML Syringe ONE (00:30)
[2019-10-17 00:40] LABS: BLOOD UREA NITROGEN,BUN 18 mg/dL (7.0-18.0); CARBON DIOXIDE,CO2 23.2 mmol/L (21.0-32.0); CHLORIDE,CL 104 mmol/L (98-107); GLUCOSE RANDOM 116 mg/dL (74-106); LIPASE 78 U/L (73-393); SODIUM,NA 139 mmol/L (136-145)
[2019-10-17] MEDS ORDERED: Morphine 4 MG/ML Syringe IVPUSH ONE (00:58)
[2019-10-17] MEDS ORDERED: Iopamidol 755 MG/ML 500 ML Multipack Bottle IVPUSH ONE (01:31)
[2019-10-17] MEDS ORDERED: Morphine 2 MG/ML Syringe IVPUSH ONE (01:34)
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
[2019-10-17] MEDS ORDERED: Ondansetron 4 MG/2 ML SDV IVPUSH ONE (03:06)
[2019-10-17] MEDS ORDERED: Ondansetron 4 MG/2 ML SDV IVPUSH PRN (04:10)
[2019-10-17] MEDS: Lactated Ringers 1,000 ML IV SCH ×2 (04:18→15:50)
[2019-10-17] MEDS: Morphine 2 MG/ML Syringe IVPUSH PRN ×3 (04:31→17:13)
[2019-10-17] MEDS ORDERED: HYDROmorphone 2 MG Tab PO PRN ×2 (06:58→08:42)
[2019-10-17] MEDS ORDERED: Diazepam 2 MG Tab PO ONE (07:50)
--- NOTE | 2019-10-17 08:40 | PCM.SN ---
- Free Text/Narrative Note: pt seen, chart reviewed; [id number]
[2019-10-17] MEDS ORDERED: Ketorolac 30 MG/ML SDV IVPUSH PRN ×2 (11:17→15:15)
[2019-10-17] MEDS ORDERED: LORazepam 2 MG/ML SDV IVPUSH PRN (11:18)
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
[2019-10-17 15:48] VITALS: BP 105/52; PULSE 95
--- NOTE | 2019-10-17 16:58 | PCM.SN ---
- Free Text/Narrative Note: MRI done per pt request for pain; MRI -ve; morning CT R shoulder -ve; pt happy to hear that, and pain has also been in control; request to be discharged; home on dilaudid; fu w primary care and myself 1- 2 wks
== END 2019-10-17 17:50 | disposition home or self-care (01) ==
LOC: MW.ED 23:37 → MW.MS 10-17 03:14
PROVIDERS: ADMIT Surgery; ATTEND Surgery
DX: R10.30 Lower abdominal pain, unspecified (principal); M25.511 Pain in right shoulder; J45.909 Unspecified asthma, uncomplicated; E66.01 Morbid (severe) obesity due to excess calories; Z68.33 Body mass index [BMI] 33.0-33.9, adult; Z91.040 Latex allergy status; Z88.0 Allergy status to penicillin; Z91.048 Other nonmedicinal substance allergy status; V89.2XXA Person injured in unspecified motor-vehicle accident, traffic, initial encounter
CPT/HCPCS: 36415; 70450; 70450-26; 71045; 71045-26; 71260; 71260-26; 72125; 72125-26; 72128; 72128-26; 72131; 72131-26; 72170; 72170-26; 73221-26-RT; 73221-RT; 74177; 74177-26; 80053; 81003; 83690; 84702; 85025; 86850; 86900; 86901; 93005; A9270-GY; J1885; J2060; J2270; J2405; J7120; Q9967

== ENCOUNTER 2021-02-25 00:49 | Emergency (ER) | payer MEDICAID ==
[2021-02-25] MEDS ORDERED: LORazepam 1 MG Tab PO ONE (01:31)
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
[2021-02-25 02:13] VITALS: BP 155/90; PULSE 90
== END 2021-02-25 02:20 ==
LOC: MW.ED 00:49
DX: F41.9 Anxiety disorder, unspecified (principal); E66.9 Obesity, unspecified; Z68.30 Body mass index [BMI] 30.0-30.9, adult; Z91.040 Latex allergy status; Z91.09 Other allergy status, other than to drugs and biological substances; Z88.0 Allergy status to penicillin; Z86.718 Personal history of other venous thrombosis and embolism
CPT/HCPCS: 99283; A9270

== ENCOUNTER 2022-07-18 02:09 | Emergency (ER) | payer OTHER, MEDICAID ==
[2022-07-18] MEDS ORDERED: Sodium Chloride 0.9% 10 ML Syringe FLUSH PRN (02:26)
[2022-07-18] MEDS ORDERED: Sodium Chloride 0.9% 2.5 ML Syringe FLUSH PRN (02:26)
[2022-07-18] MEDS ORDERED: Sodium Chloride 0.9% 1,000 ML IV ONE (02:30)
[2022-07-18 03:21] LABS: CARBON DIOXIDE,CO2 29.3 mmol/L (21.0-32.0)
[2022-07-18] MEDS ORDERED: Iopamidol 755 MG/ML 500 ML Multipack Bottle IVPUSH ONE (03:39)
[2022-07-18 05:57] VITALS: BP 140/98; PULSE 98
== END 2022-07-18 06:22 ==
LOC: MW.ED 02:09
DX: M54.2 Cervicalgia (principal); M25.511 Pain in right shoulder; M25.512 Pain in left shoulder; E66.9 Obesity, unspecified; Z68.28 Body mass index [BMI] 28.0-28.9, adult; Z91.040 Latex allergy status; Z88.0 Allergy status to penicillin; Z91.048 Other nonmedicinal substance allergy status; Z79.899 Other long term (current) drug therapy; V49.40XA Driver injured in collision with unspecified motor vehicles in traffic accident, initial encounter; Y92.410 Unspecified street and highway as the place of occurrence of the external cause
CPT/HCPCS: 36415; 70450; 71045; 71260; 72125; 72128; 72131; 73030; 74177; 80053; 80305; 80307; 81001; 84703; 85025; 85610; 96360; 99285; J3490; J7030; Q9967

== ENCOUNTER 2022-11-24 21:54 | Emergency (ER) | payer MEDICAID ==
[2022-11-24] MEDS ORDERED: Albuterol/Ipratropium 3.0-0.5 MG/3 ML Neb Soln NEB ONE (22:01)
[2022-11-24] MEDS ORDERED: Dexamethasone 4 MG Tab PO ONE (22:23)
[2022-11-24] MEDS ORDERED: Albuterol 0.083% 2.5 MG/3 ML Neb Soln NEB ONE (22:23)
[2022-11-24 23:40] VITALS: BP 124/69; PULSE 89
[2022-11-25 00:03] LABS: CORONAVIRUS COVID-19 NAA NEGATIVE (NEGATIVE); INFLUENZA A NAA NEGATIVE (NEGATIVE); INFLUENZA B NAA NEGATIVE (NEGATIVE); RESPIRATORY SYNCYTIAL VIR NAA NEGATIVE (NEGATIVE)
== END 2022-11-24 23:53 | disposition home or self-care (01) ==
LOC: MW.ED 21:54
DX: J45.901 Unspecified asthma with (acute) exacerbation (principal); E66.9 Obesity, unspecified; Z68.34 Body mass index [BMI] 34.0-34.9, adult; Z91.040 Latex allergy status; Z88.0 Allergy status to penicillin; Z91.048 Other nonmedicinal substance allergy status; Z20.822 Contact with and (suspected) exposure to COVID-19
CPT/HCPCS: 0241U; 71045; 93005; 99285; J8540; 99284; J7620-GY

== ENCOUNTER 2023-07-05 15:34 | Emergency (ER) | payer MEDICAID ==
[2023-07-05] MEDS ORDERED: Albuterol/Ipratropium 3.0-0.5 MG/3 ML Neb Soln NEB ONE ×2 (15:41→16:37)
[2023-07-05] MEDS ORDERED: methylPREDNISolone Sodium Succinate 125 MG/2 ML SDV IVPUSH ONE (15:42)
[2023-07-05 16:26] LABS: BASOPHILS ABSOLUTE AUTO 0.03 K/uL (0.00-0.20); BASOPHILS PERCENT AUTO 0.4 % (0.0-1.0); EOSINOPHILS ABSOLUTE AUTO 0.51 K/uL (0.00-0.45); EOSINOPHILS PERCENT AUTO 7.2 % (0.0-6.0); HEMATOCRIT 37.7 % (37.0-47.0); HEMOGLOBIN 12.7 g/dL (12.0-16.0); IMMATURE GRAN ABSOLUTE AUTO 0.04 K/uL (0.00-0.05); IMMATURE GRAN PERCENT AUTO 0.6 % (0.0-0.4); LYMPHOCYTES ABSOLUTE AUTO 1.34 K/uL (1.00-4.80); LYMPHOCYTES PERCENT AUTO 18.9 % (24.0-44.0); MEAN CORPUSCULAR HGB CONC 33.7 g/dL (32.0-36.0); MEAN CORPUSCULAR VOLUME 86.1 fL (83.0-99.0); MEAN PLATELET VOLUME 10.2 fL (9.4-12.3); MONOCYTES ABSOLUTE AUTO 0.83 K/uL (0.00-0.80); MONOCYTES PERCENT AUTO 11.7 % (0.0-8.0); NEUTROPHILS ABSOLUTE AUTO 4.34 K/uL (1.80-7.70); NEUTROPHILS PERCENT AUTO 61.2 % (41.0-71.0); PLATELET COUNT,PLT 254 K/uL (150-400); RED BLOOD CELL COUNT 4.38 M/uL (4.10-5.30); WHITE BLOOD CELL COUNT,WBC 7.09 K/uL (3.9-11.3)
[2023-07-05] MEDS ORDERED: Acetaminophen/HYDROcodone 325-5 MG Tab PO ONE (16:38)
[2023-07-05 17:01] LABS: CORONAVIRUS COVID-19 NAA NEGATIVE (NEGATIVE); INFLUENZA A NAA NEGATIVE (NEGATIVE); INFLUENZA B NAA NEGATIVE (NEGATIVE)
[2023-07-05 18:11] LABS: ALBUMIN 3.3 g/dL (3.4-5.0); BILIRUBIN TOTAL 0.2 mg/dL (0.2-1.0); CALCIUM 8.6 mg/dL (8.5-10.1); CARBON DIOXIDE,CO2 23.1 mmol/L (21.0-32.0); CREATININE 0.8 mg/dL (0.6-1.0); EST CRCL DRUG DOSING (CG) 98.67 mL/min; MAGNESIUM 1.7 mg/dL (1.8-2.4); POTASSIUM,K 3.6 mmol/L (3.5-5.1); PROTEIN TOTAL,TP 7.2 g/dL (6.4-8.2)
[2023-07-05 18:12] LABS: A/G RATIO 0.9 (0.9-1.6)
[2023-07-05 19:38] VITALS: BP 125/70; PULSE 108
== END 2023-07-05 19:00 | disposition home or self-care (01) ==
LOC: MW.ED 15:34
DX: J45.901 Unspecified asthma with (acute) exacerbation (principal); E66.9 Obesity, unspecified; Z79.899 Other long term (current) drug therapy; Z91.040 Latex allergy status; Z88.0 Allergy status to penicillin; Z91.048 Other nonmedicinal substance allergy status; Z68.36 Body mass index [BMI] 36.0-36.9, adult
CPT/HCPCS: 0240U; 36415; 71045; 73620; 80053; 83735; 84484; 85025; 93005; 94640; 96374; 99285; A9270; J2930; 93010; 99284; J7620-GY

== ENCOUNTER 2023-07-21 19:40 | Emergency (ER) | payer MEDICAID ==
[2023-07-21] MEDS ORDERED: Albuterol/Ipratropium 3.0-0.5 MG/3 ML Neb Soln NEB ONE (19:50)
[2023-07-21] MEDS: Albuterol/Ipratropium 3.0-0.5 MG/3 ML Neb Soln ONE ×2 (19:51→19:53)
[2023-07-21] MEDS ORDERED: Albuterol 0.083% 2.5 MG/3 ML Neb Soln NEB ONE ×2 (20:49→22:41)
[2023-07-21] MEDS ORDERED: predniSONE 20 MG Tab PO ONE (20:50)
[2023-07-21] MEDS ORDERED: Sodium Chloride 0.9% 10 ML Syringe FLUSH PRN (20:50)
[2023-07-21] MEDS ORDERED: Sodium Chloride 0.9% 2.5 ML Syringe FLUSH PRN (20:50)
[2023-07-21] MEDS ORDERED: Ketorolac 30 MG/ML SDV IM ONE (20:51)
[2023-07-21 20:56] LABS: CORONAVIRUS COVID-19 NAA NEGATIVE (NEGATIVE); INFLUENZA A NAA NEGATIVE (NEGATIVE); INFLUENZA B NAA NEGATIVE (NEGATIVE); RESPIRATORY SYNCYTIAL VIR NAA NEGATIVE (NEGATIVE)
[2023-07-21 21:47] LABS: BASOPHILS ABSOLUTE AUTO 0.03 K/uL (0.00-0.20); BASOPHILS PERCENT AUTO 0.4 % (0.0-1.0); EOSINOPHILS PERCENT AUTO 14.9 % (0.0-6.0); HEMATOCRIT 39.2 % (37.0-47.0); HEMOGLOBIN 12.9 g/dL (12.0-16.0); IMMATURE GRAN ABSOLUTE AUTO 0.02 K/uL (0.00-0.05); IMMATURE GRAN PERCENT AUTO 0.3 % (0.0-0.4); LYMPHOCYTES ABSOLUTE AUTO 1.77 K/uL (1.00-4.80); LYMPHOCYTES PERCENT AUTO 23.9 % (24.0-44.0); MEAN CORPUSCULAR HEMOGLOBIN 29.3 pg (28.0-32.0); MEAN CORPUSCULAR HGB CONC 32.9 g/dL (32.0-36.0); MEAN CORPUSCULAR VOLUME 89.1 fL (83.0-99.0); MEAN PLATELET VOLUME 9.9 fL (9.4-12.3); MONOCYTES ABSOLUTE AUTO 0.58 K/uL (0.00-0.80); MONOCYTES PERCENT AUTO 7.8 % (0.0-8.0); NEUTROPHILS PERCENT AUTO 52.7 % (41.0-71.0); PLATELET COUNT,PLT 210 K/uL (150-400)
[2023-07-21 22:03] LABS: CALCIUM 8.5 mg/dL (8.5-10.1); CARBON DIOXIDE,CO2 24.3 mmol/L (21.0-32.0); CREATININE 1.2 mg/dL (0.6-1.0); EST CRCL DRUG DOSING (CG) 65.78 mL/min; POTASSIUM,K 4.1 mmol/L (3.5-5.1)
[2023-07-21] MEDS ORDERED: Iopamidol 755 MG/ML 500 ML Multipack Bottle IVPUSH ONE (22:48)
[2023-07-22 00:54] VITALS: BP 135/67; PULSE 98
== END 2023-07-22 00:53 | disposition home or self-care (01) ==
LOC: MW.ED 19:40
DX: R06.02 Shortness of breath (principal); J45.909 Unspecified asthma, uncomplicated; Z20.822 Contact with and (suspected) exposure to COVID-19; E66.9 Obesity, unspecified; Z68.35 Body mass index [BMI] 35.0-35.9, adult; Z91.048 Other nonmedicinal substance allergy status; Z91.040 Latex allergy status; Z88.0 Allergy status to penicillin
CPT/HCPCS: 0241U; 36415; 71045; 71275; 80048; 85025; 85379; 96372; 99291; A9270; J1885; J3490; Q9967; J7620-GY

== ENCOUNTER 2023-08-03 09:03 | Observation (INO) | payer MEDICAID ==
[2023-08-03] MEDS ORDERED: Albuterol/Ipratropium 3.0-0.5 MG/3 ML Neb Soln NEB ONE ×2 (09:05→09:45)
[2023-08-03] MEDS ORDERED: predniSONE 20 MG Tab PO ONE (09:09)
[2023-08-03 09:24] LABS: BASOPHILS ABSOLUTE AUTO 0.08 K/uL (0.00-0.20); BASOPHILS PERCENT AUTO 0.8 % (0.0-1.0); EOSINOPHILS ABSOLUTE AUTO 0.85 K/uL (0.00-0.45); EOSINOPHILS PERCENT AUTO 8.9 % (0.0-6.0); HEMATOCRIT 40.1 % (37.0-47.0); HEMOGLOBIN 12.9 g/dL (12.0-16.0); IMMATURE GRAN ABSOLUTE AUTO 0.31 K/uL (0.00-0.05); IMMATURE GRAN PERCENT AUTO 3.3 % (0.0-0.4); LYMPHOCYTES ABSOLUTE AUTO 1.97 K/uL (1.00-4.80); LYMPHOCYTES PERCENT AUTO 20.7 % (24.0-44.0); MEAN CORPUSCULAR HEMOGLOBIN 29.5 pg (28.0-32.0); MEAN CORPUSCULAR HGB CONC 32.2 g/dL (32.0-36.0); MEAN CORPUSCULAR VOLUME 91.8 fL (83.0-99.0); MEAN PLATELET VOLUME 9.1 fL (9.4-12.3); MONOCYTES ABSOLUTE AUTO 0.84 K/uL (0.00-0.80); MONOCYTES PERCENT AUTO 8.8 % (0.0-8.0); NEUTROPHILS ABSOLUTE AUTO 5.45 K/uL (1.80-7.70); NEUTROPHILS PERCENT AUTO 57.5 % (41.0-71.0); PLATELET COUNT,PLT 275 K/uL (150-400); RED BLOOD CELL COUNT 4.37 M/uL (4.10-5.30)
[2023-08-03 09:37] LABS: INR < 0.93 (0.86-1.11)
[2023-08-03 09:48] LABS: A/G RATIO 0.8 (0.9-1.6); BILIRUBIN TOTAL 0.2 mg/dL (0.2-1.0); CALCIUM 8.8 mg/dL (8.5-10.1); CARBON DIOXIDE,CO2 24.9 mmol/L (21.0-32.0); CREATININE 0.9 mg/dL (0.6-1.0); EST CRCL DRUG DOSING (CG) 87.7 mL/min; POTASSIUM,K 4.1 mmol/L (3.5-5.1)
[2023-08-03 09:58] LABS: CORONAVIRUS COVID-19 NAA NEGATIVE (NEGATIVE); INFLUENZA A NAA NEGATIVE (NEGATIVE); INFLUENZA B NAA NEGATIVE (NEGATIVE); RESPIRATORY SYNCYTIAL VIR NAA NEGATIVE (NEGATIVE)
[2023-08-03] MEDS ORDERED: Albuterol 0.083% 2.5 MG/3 ML Neb Soln NEB ONE ×2 (12:17→14:21)
[2023-08-03] MEDS ORDERED: Iopamidol 755 MG/ML 500 ML Multipack Bottle IVPUSH STA (12:53)
[2023-08-03] MEDS ORDERED: Ondansetron 4 MG/2 ML SDV IVPUSH ONE (13:50)
[2023-08-03] MEDS ORDERED: Benzonatate 100 MG Cap PO ONE (13:51)
[2023-08-03] MEDS ORDERED: Sodium Chloride 0.9% 10 ML Syringe FLUSH PRN (15:28)
[2023-08-03] MEDS ORDERED: Albuterol 0.083% 2.5 MG/3 ML Neb Soln NEB PRN (15:28)
[2023-08-03] MEDS ORDERED: Sodium Chloride 0.9% 20 ML SDV IV PRN (15:28)
[2023-08-03] MEDS ORDERED: Acetaminophen 325 MG Tab PO PRN (15:28)
[2023-08-03] MEDS ORDERED: Sodium Chloride 0.9% 2.5 ML Syringe FLUSH PRN (15:28)
[2023-08-03] MEDS ORDERED: Ondansetron 4 MG/2 ML SDV IVPUSH PRN (15:28)
[2023-08-03] MEDS ORDERED: LORazepam 2 MG/ML SDV IVPUSH ONE (15:28)
[2023-08-03] MEDS ORDERED: Polyethylene Glycol 3350 Powder 17 GM Packet PO PRN (15:28)
[2023-08-03] MEDS ORDERED: Sodium Chloride 0.9% 1,000 ML IV SCH (15:30)
[2023-08-03] MEDS ORDERED: Magnesium Sulfate/Water 2 GM in Premix Bag 1 BAG IV ONE (15:35)
[2023-08-03 15:48] LABS: MAGNESIUM 1.9 mg/dL (1.8-2.4); PHOSPHORUS 4.4 mg/dL (2.6-4.7)
[2023-08-03] MEDS: Albuterol/Ipratropium 3.0-0.5 MG/3 ML Neb Soln NEB SCH ×2 (15:51→19:35)
[2023-08-03] MEDS ORDERED: Enoxaparin 40 MG/0.4 ML Syringe SUBCUT SCH (16:00)
[2023-08-03] MEDS: methylPREDNISolone Sodium Succinate 40 MG/1 ML SDV IVPUSH SCH ×2 (16:18→23:42)
[2023-08-03] MEDS: Albuterol 0.083% 2.5 MG/3 ML Neb Soln NEB SCH ×3 (18:02→19:35)
[2023-08-03] MEDS: Pantoprazole 40 MG in Sodium Chloride 0.9% 10 ML IVPUSH SCH (19:34)
[2023-08-03] MEDS ORDERED: traZODone 50 MG Tab PO ONE (22:00)
[2023-08-03] MEDS ORDERED: Melatonin 3 MG Tab PO PRN (22:02)
[2023-08-03] MEDS: Albuterol/Ipratropium 3.0-0.5 MG/3 ML Neb Soln NEB PRN (23:42)
[2023-08-04] MEDS: methylPREDNISolone Sodium Succinate 40 MG/1 ML SDV IVPUSH SCH ×2 (08:24→16:03)
[2023-08-04] MEDS: Pantoprazole 40 MG in Sodium Chloride 0.9% 10 ML IVPUSH SCH (08:24)
[2023-08-04] MEDS ORDERED: ClonazePAM 1 MG Tab PO PRN (09:00)
[2023-08-04] MEDS: Albuterol/Ipratropium 3.0-0.5 MG/3 ML Neb Soln NEB PRN (09:52)
[2023-08-04] MEDS ORDERED: Benzonatate 100 MG Cap PO SCH (14:00)
[2023-08-04 17:30] VITALS: BP 143/93; PULSE 105
[2023-08-04] MEDS ORDERED: Pantoprazole 40 MG Tab.CR PO SCH (21:00)
== END 2023-08-04 16:19 | disposition home or self-care (01) ==
LOC: MW.ED 09:03 → MW.MS 15:11
PROVIDERS: ADMIT Family Medicine; ATTEND Family Medicine
DX: J45.901 Unspecified asthma with (acute) exacerbation (principal); F41.9 Anxiety disorder, unspecified; F32.A Depression, unspecified; E66.9 Obesity, unspecified; Z86.718 Personal history of other venous thrombosis and embolism; Z86.19 Personal history of other infectious and parasitic diseases; Z20.822 Contact with and (suspected) exposure to COVID-19; Z79.01 Long term (current) use of anticoagulants; Z79.899 Other long term (current) drug therapy; Z88.0 Allergy status to penicillin; Z91.040 Latex allergy status; Z88.1 Allergy status to other antibiotic agents
CPT/HCPCS: 0241U; 36415; 71045; 71275; 80053; 83735; 84100; 84484; 85025; 85379; 85610; 93005; 96374; 99285; A9270; C9113; J1650; J2060; J2405; J2920; J3475; J3490; Q9967; 96365; 96366; 96372; 96375; 96376; G0378; J7620-GY

== ENCOUNTER 2024-01-26 14:50 | Emergency (ER) | payer SELFPAY ==
[2024-01-26 15:55] LABS: BASOPHILS ABSOLUTE AUTO 0.05 K/uL (0.00-0.20); BASOPHILS PERCENT AUTO 0.4 % (0.0-1.0); EOSINOPHILS ABSOLUTE AUTO 0.29 K/uL (0.00-0.45); EOSINOPHILS PERCENT AUTO 2.5 % (0.0-6.0); HEMATOCRIT 41.6 % (37.0-47.0); HEMOGLOBIN 13.7 g/dL (12.0-16.0); IMMATURE GRAN ABSOLUTE AUTO 0.13 K/uL (0.00-0.05); IMMATURE GRAN PERCENT AUTO 1.1 % (0.0-0.4); LYMPHOCYTES ABSOLUTE AUTO 2.55 K/uL (1.00-4.80); LYMPHOCYTES PERCENT AUTO 22.1 % (24.0-44.0); MEAN CORPUSCULAR HEMOGLOBIN 28.7 pg (28.0-32.0); MEAN CORPUSCULAR HGB CONC 32.9 g/dL (32.0-36.0); MEAN PLATELET VOLUME 9.9 fL (9.4-12.3); MONOCYTES ABSOLUTE AUTO 0.92 K/uL (0.00-0.80); NEUTROPHILS ABSOLUTE AUTO 7.61 K/uL (1.80-7.70); NEUTROPHILS PERCENT AUTO 65.9 % (41.0-71.0); PLATELET COUNT,PLT 272 K/uL (150-400); RED BLOOD CELL COUNT 4.78 M/uL (4.10-5.30); WHITE BLOOD CELL COUNT,WBC 11.55 K/uL (3.9-11.3)
[2024-01-26 16:34] LABS: A/G RATIO 0.8 (0.9-1.6); ALANINE AMINOTRANSFERASE,ALT 20 IU/L (14-63); ALBUMIN 3.2 g/dL (3.4-5.0); ALKALINE PHOSPHATASE 61 U/L (46-116); ASPARTATE AMNIOTRANSFERASE,AST 11 IU/L (15-37); BILIRUBIN TOTAL 0.3 mg/dL (0.2-1.0); BLOOD UREA NITROGEN,BUN 15 mg/dL (7.0-18.0); CALCIUM 8.5 mg/dL (8.5-10.1); CARBON DIOXIDE,CO2 24.6 mmol/L (21.0-32.0); CHLORIDE,CL 104 mmol/L (98-107); CREATININE 0.8 mg/dL (0.6-1.0); EST CRCL DRUG DOSING (CG) 98.67 mL/min; ESTIMATED GFR 96 mL/min (>60); GLUCOSE RANDOM 92 mg/dL (74-106); POTASSIUM,K 3.7 mmol/L (3.5-5.1); PROTEIN TOTAL,TP 7.4 g/dL (6.4-8.2); SODIUM,NA 139 mmol/L (136-145); TSH ULTRASENSITIVE 2.63 uIU/mL (0.36-3.74)
[2024-01-26] MEDS ORDERED: Naloxone 0.4 MG/ML SDV IVPUSH PRN (16:52)
[2024-01-26] MEDS: Morphine 2 MG/ML SYRINGE IVPUSH ONE (16:58)
[2024-01-26] MEDS: ceFAZolin 1 GM in Sodium Chloride 0.9% 50 ML IV ONE (17:34)
[2024-01-26] MEDS: Morphine 4 MG/ML Syringe IVPUSH ONE (18:32)
[2024-01-26] MEDS: Lidocaine 4% 1 each Patch TOP PRN (18:49)
[2024-01-26 19:05] VITALS: BP 99/60; PULSE 84
== END 2024-01-26 19:04 | disposition home or self-care (01) ==
LOC: MW.ED 14:50
DX: L03.311 Cellulitis of abdominal wall (principal); L03.115 Cellulitis of right lower limb; L02.221 Furuncle of abdominal wall; L02.425 Furuncle of right lower limb; R06.02 Shortness of breath; E66.9 Obesity, unspecified; J45.909 Unspecified asthma, uncomplicated; Z79.899 Other long term (current) drug therapy; Z88.0 Allergy status to penicillin; Z88.1 Allergy status to other antibiotic agents; Z91.040 Latex allergy status; Z91.048 Other nonmedicinal substance allergy status; Z75.8 Other problems related to medical facilities and other health care
CPT/HCPCS: 36415; 71045; 80053; 84443; 84484; 85025; 93005; 96365; 96375; 96376; 99285; A9270; J0690; J2270; J3490

== ENCOUNTER 2024-05-06 19:00 | Emergency (ER) | payer SELFPAY ==
[2024-05-06] MEDS: Acetaminophen/HYDROcodone 325-5 MG Tab PO ONE ×2 (19:33→20:34)
[2024-05-06 21:35] VITALS: BP 140/90; PULSE 86
== END 2024-05-06 20:50 | disposition home or self-care (01) ==
LOC: MW.ED 19:00
DX: S93.401A Sprain of unspecified ligament of right ankle, initial encounter (principal); J45.909 Unspecified asthma, uncomplicated; E66.9 Obesity, unspecified; Z68.42 Body mass index [BMI] 45.0-49.9, adult; Z79.899 Other long term (current) drug therapy; Z91.048 Other nonmedicinal substance allergy status; Z91.040 Latex allergy status; Z88.0 Allergy status to penicillin; Z88.1 Allergy status to other antibiotic agents
CPT/HCPCS: 73610; 99283; A9270

== ENCOUNTER 2024-08-13 19:10 | Emergency (ER) | payer SELFPAY ==
[2024-08-13 20:11] VITALS: BP 153/90
[2024-08-13 20:30] VITALS: PULSE 79
== END 2024-08-13 20:29 ==
LOC: MW.ED 19:10
DX: Z02.89 Encounter for other administrative examinations (principal); J45.909 Unspecified asthma, uncomplicated; E66.9 Obesity, unspecified; Z68.41 Body mass index [BMI] 40.0-44.9, adult; Z88.0 Allergy status to penicillin; Z88.1 Allergy status to other antibiotic agents; Z88.6 Allergy status to analgesic agent; Z91.040 Latex allergy status; Z91.048 Other nonmedicinal substance allergy status; Z79.51 Long term (current) use of inhaled steroids; Z79.52 Long term (current) use of systemic steroids; Z79.899 Other long term (current) drug therapy
CPT/HCPCS: 99283